=== PATIENT | female | born 1990 ===

== ENCOUNTER 2024-03-21 23:43 | Emergency (ER) | payer BC, MEDICAID, SELFPAY ==
[2024-03-21 23:59] VITALS: BP 130/87; PULSE 91; RESP 15; TEMP 36.3; O2SAT 99
--- NOTE | 2024-03-22 00:45 | PC.NURSE ---
ON 03/22/2024 AT 0045 PT WAS CALLED TO COME BACK TO MAIN ED FROM LOBBY WITH NO ANSWER. WILL CALL AGAIN LATER.
[2024-03-22 00:56] LABS: Add Urine Microscopic? YES; Appearance Urine Cloudy (Clear); Bacteria Urine Rare /hpf; Bilirubin Urine Negative (Negative); Blood Urine 3+ (Negative); Color Urine Dark Yellow (Yellow); Glucose Urine UA Negative (Negative); Ketones Urine Trace mg/dL (Negative); Leukocyte Esterase Ur Trace LEU/UL (Negative); Nitrate Urine Negative (Negative); Non Pathogenic Casts 0-2; Protein Urine 2+ mg/dL (Negative); RBC Urine >100 /hpf (0-2); Specific Grav Ur 1.026 (1.001-1.035); Squamous Epithelial Cell Urine Occasional /hpf (Few)
--- NOTE | 2024-03-22 01:26 | PC.NURSE ---
Pt was called once again to be taken back to a room and did not show.
== END 2024-03-22 01:46 | disposition left against medical advice (07) ==
PROVIDERS: Emergency Provider Emergency Medicine
DX: R10.9 Unspecified abdominal pain (principal)
CPT/HCPCS: 81001; 81025; 87086; 87088; 99199